=== PATIENT | female | born 1995 | race African-American/Black ===

== ENCOUNTER → 2017-01-29 | Outpatient (CLI) | payer OTHER | LOC: RAD 12:33 | PROVIDERS: ATTEND Physician Assistant | DX: R94.6 Abnormal results of thyroid function studies (principal) | CPT/HCPCS: 76536 ==

== ENCOUNTER 2017-02-21 00:30 | Emergency (ER) | payer OTHER ==
[2017-02-21] MEDS ORDERED: CIPROFLOXACIN HCL/DEXAMETH OTIC DROP 7.5 ML AS ONE (01:56)
[2017-02-21] MEDS ORDERED: LIDOCAINE 2% URO-JET 5 ML KIT MM ONE (01:56)
[2017-02-21] MEDS ORDERED: IBUPROFEN 800 MG TABLET PO ONE (01:57)
--- NOTE | 2017-02-21 02:00 | ER Document Report ---
ED ENT - General Chief Complaint: Ear Pain Stated Complaint: LEFT EAR PAIN Time Seen by Provider: 02/21/17 01:41 Mode of Arrival: Ambulatory Information source: Patient Notes: Patient is a 21-year-old female who presents to the ER today for left earache that began at 9:30 PM tonight. She denies any other symptoms such as cough, runny nose, fever, chills, sore throat. She denies any drainage from the ear. She denies any recent swimming. TRAVEL OUTSIDE OF THE [place] IN LAST 30 DAYS: No - Related Data Allergies/Adverse Reactions: No Known Allergies Allergy (Unverified 02/21/17 00:38) Past Medical History - General Information source: Patient - Social History Smoking Status: Never Smoker Family History: Reviewed & Not Pertinent Patient has suicidal ideation: No Patient has homicidal ideation: No Renal/ Medical History: Denies: Hx Peritoneal Dialysis Review of Systems - Review of Systems Constitutional: No symptoms reported EENT: See HPI Cardiovascular: No symptoms reported Respiratory: No symptoms reported Gastrointestinal: No symptoms reported Genitourinary: No symptoms reported Female Genitourinary: No symptoms reported Musculoskeletal: No symptoms reported Skin: No symptoms reported Hematologic/Lymphatic: No symptoms reported Neurological/Psychological: No symptoms reported Physical Exam - Vital signs Vitals: Temp Pulse Resp BP Pulse Ox 98.2 F 94 H 18 139/104 H 100 02/21/17 00:36 02/21/17 00:36 02/21/17 00:36 02/21/17 00:36 02/21/17 00:36 - Notes Notes: PHYSICAL EXAMINATION: GENERAL: Appears uncomfortable, holding left ear, but in no acute distress. HEAD: Atraumatic, normocephalic. EYES: Pupils equal round and reactive to light, extraocular movements intact, sclera anicteric, conjunctiva are normal. ENT: Left ear canal with erythema, edema, purulent discharge, right ear canal without erythema or foreign body, TMs pearly garcia with good bony landmarks, nares patent, oropharynx clear without exudates. Moist mucous membranes. NECK: Normal range of motion, supple without lymphadenopathy LUNGS: CTAB and equal. No wheezes rales or rhonchi. HEART: Regular rate and rhythm without murmurs EXTREMITIES: Normal range of motion, no pitting edema. No cyanosis. NEUROLOGICAL: Cranial nerves grossly intact. Normal sensory/motor exams. PSYCH: Normal mood, normal affect. SKIN: Warm, Dry, normal turgor, no rashes or lesions noted Course - Re-evaluation Re-evalutation: 02/21/17 04:12 pt given ciprodex to take home with her from here. - Vital Signs Vital signs: Temp Pulse Resp BP Pulse Ox 98.2 F 89 18 111/72 96 02/21/17 00:36 02/21/17 02:17 02/21/17 02:17 02/21/17 02:17 02/21/17 02:17 Discharge - Discharge Clinical Impression: Otitis externa, left Qualifiers: Otitis externa type: unspecified type Chronicity: acute Qualified Code(s): H60.502 - Unspecified acute noninfective otitis externa, left ear Condition: Stable Disposition: HOME, SELF-CARE Instructions: Use of Ear Drops ([facility]), Otitis Externa ([facility]) Additional Instructions: Please apply 4 drops to the left ear twice a day for 7 days. He can also use the numbing gel every 1 hour as needed for pain. Please only put this on after the eardrops if you are putting both in and around the same time. Return immediately for any new or worsening symptoms. Follow up with primary care provider, call tomorrow to make followup appointment. Prescriptions: Ibuprofen [Motrin 800 mg Tablet] 800 mg PO Q8H PRN #30 tab PRN Reason: Forms: Return to School
[2017-02-21 02:18] VITALS: BP 111/72
== END 2017-02-21 02:18 | disposition home or self-care (01) ==
LOC: ER 00:30
DX: H60.502 Unspecified acute noninfective otitis externa, left ear (principal); H92.02 Otalgia, left ear
CPT/HCPCS: 99282; J3490 ×2

== ENCOUNTER 2018-12-05 12:49 | Emergency (ER) | payer BC ==
[2018-12-05] MEDS ORDERED: IBUPROFEN 800 MG TABLET PO ONE (13:14)
--- NOTE | 2018-12-05 13:14 | ER Document Report ---
HPI - HPI Patient complains to provider of: Sore throat Time Seen by Provider: 12/05/18 13:09 Onset: Other - 3 days Onset/Duration: Persistent Quality of pain: Achy Pain Level: 1 Context: Patient presents complaining of sore throat for the past 3 days. Patient states she initially had a fever but none since then. Associated Symptoms: Fever - 3 days ago, Sore throat. denies: Nonproductive cough, Earache, Nausea Exacerbated by: Denies Relieved by: Denies Similar symptoms previously: Yes Recently seen / treated by doctor: No - ROS ROS below otherwise negative: Yes Systems Reviewed and Negative: Yes All other systems reviewed and negative - CONSTITUTIONAL Constitutional: REPORTS: Fever - EENT EENT: REPORTS: Sore Throat. DENIES: Ear Pain - RESPIRATORY Respiratory: DENIES: Coughing - GASTROINTESTINAL Gastrointestinal: DENIES: Patient vomiting - REPRODUCTIVE Reproductive: DENIES: : - DERM Skin Color: Normal Skin Problems: None Past Medical History - General Information source: Patient - Social History Smoking Status: Never Smoker Frequency of alcohol use: None Drug Abuse: None Occupation: food service agent Family History: Reviewed & Not Pertinent - Medical History Medical History: Negative Renal/ Medical History: Denies: Hx Peritoneal Dialysis Surgical Hx: Negative Vertical Provider Document - CONSTITUTIONAL Agree With Documented VS: Yes Exam Limitations: No Limitations General Appearance: WD/WN, No Apparent Distress - INFECTION CONTROL TRAVEL OUTSIDE OF THE [place] IN LAST 30 DAYS: No - HEENT HEENT: Atraumatic, Normocephalic, Pharyngeal Tenderness, Pharyngeal Erythema. negative: Pharyngeal Exudate, Tympanic Membrane Red, Tympanic Membrane Bulging - NECK Neck: Normal Inspection, Supple. negative: Lymphadenopathy-Left, Lymphadenopathy-Right - RESPIRATORY Respiratory: Breath Sounds Normal, No Respiratory Distress - CARDIOVASCULAR Cardiovascular: Regular Rate, Regular Rhythm, No Murmur - MUSCULOSKELETAL/EXTREMETIES Musculoskeletal/Extremeties: MAEW, FROM - NEURO Level of Consciousness: Awake, Alert, Appropriate Motor/Sensory: No Motor Deficit - DERM Integumentary: Warm, Dry, No Rash Course - Re-evaluation Re-evalutation: 12/05/18 13:49 Patient's respirations even unlabored, patient nontoxic in appearance. No concern for [employer]. No potential airway compromise. Good return precautions discussed. - Vital Signs Vital signs: Temp Pulse Resp BP Pulse Ox 98.8 F 92 16 115/61 100 12/05/18 13:01 12/05/18 13:01 12/05/18 13:01 12/05/18 13:01 12/05/18 13:01 - Laboratory Laboratory results interpreted by me: 12/05/18 13:49 Labs- Entire Visit 12/05/18 13:12 Group A Strep Rapid NEGATIVE Discharge - Discharge Clinical Impression: Sore throat Condition: Stable Disposition: HOME, SELF-CARE Instructions: Anti-Inflammatory Medication ([facility]), Sore Throat ([facility]) Additional Instructions: Return immediately for any new or worsening symptoms Followup with your primary care provider, call tomorrow to make a followup appointment Throat culture is pending, we will call if you need any different treatment Prescriptions: Naproxen [Naprosyn 250 Nmg Tablet] 1 tab PO BID #14 tablet Forms: Return to Work Referrals: EILEEN NOLEN MD [Primary Care Provider] - 12/07/18
[2018-12-05 14:15] VITALS: BP 112/66
== END 2018-12-05 14:15 | disposition home or self-care (01) ==
LOC: ER 12:49
DX: J02.9 Acute pharyngitis, unspecified (principal)
CPT/HCPCS: 87070; 87880; 99283